=== PATIENT | female | born 1960 | race Caucasian/White ===

== ENCOUNTER 2018-05-27 17:28 | Emergency (ER) | payer SELFPAY ==
[~2018-05-27] VITALS: Ht 172.7 cm; Wt 83.2 kg
[2018-05-27 17:32] VITALS: Ht 172.7 cm; Wt 83.2 kg
[2018-05-27] MEDS ORDERED: OXYCONTIN15 MG PO (17:35)
[2018-05-27] MEDS ORDERED: BUPRENORPHINE HC2 MG SL (17:36)
[2018-05-27] MEDS ORDERED: SYNTHROID150 MCG PO (17:36)
[2018-05-27] MEDS ORDERED: UNITHROID150 MCG PO (17:37)
[2018-05-27] MEDS ORDERED: TIROSINT75 MCG PO (17:38)
[2018-05-27] MEDS ORDERED: SAVELLA100 MG PO (17:38)
[2018-05-27] MEDS ORDERED: HYDROCODON-ACE1 EAC2 PO (18:36)
[2018-05-27 18:55] VITALS: BP 143/85
== END 2018-05-27 18:55 | disposition home or self-care (01) ==
LOC: D.ER 17:28
DX: S52.501A Unspecified fracture of the lower end of right radius, initial encounter for closed fracture (principal); W18.31XA Fall on same level due to stepping on an object, initial encounter; Y93.89 Activity, other specified; Y92.019 Unspecified place in single-family (private) house as the place of occurrence of the external cause